=== PATIENT | female | born 1975 | race Caucasian/White ===

== ENCOUNTER → 2019-08-22 08:04 | Outpatient (BNVA) | payer OTHER, SELFPAY | PROVIDERS: PCP Nurse Practitioner Family; Visit Provider Anesthesiology | DX: M54.41 Lumbago with sciatica, right side (principal); M54.42 Lumbago with sciatica, left side; M47.817 Spondylosis without myelopathy or radiculopathy, lumbosacral region; M51.9 Unspecified thoracic, thoracolumbar and lumbosacral intervertebral disc disorder; Z79.891 Long term (current) use of opiate analgesic | CPT/HCPCS: 99214 ==

== ENCOUNTER 2019-10-05 11:25 | Outpatient (CLI) | payer OTHER, SELFPAY ==
[2019-10-05 12:54] LABS: Alanine Aminotransferase 62 U/L (0-33); Albumin Level 4.5 g/dL (3.5-5.2); Alkaline Phosphatase 83 IU/L (35-105); Aspartate Amino Transferase 56 U/L (0-32); C Reactive Protein 3.3 mg/L (0.0-4.9); Globulin 3.1 g/dL (1.3-4.6); Glomerular Filtration Rate 78.7 mL/min (90-130); Total Bilirubin 0.2 mg/dL (0.15-1.2); Total Protein 7.6 g/dL (6.6-8.7)
[2019-10-05 13:07] LABS: Basophils % 0.5 %; Eosinophils # 0.1 10^3/uL (0.0-0.8); Eosinophils % 1.4 %; Hematocrit 36.6 % (37.0-47.0); Lymphocytes # 1.4 10^3/uL (0.8-4.8); Lymphocytes % 33.4 %; Mean Corpuscular HGB Conc 32.8 g/dL (30.0-36.0); Mean Corpuscular Hemoglobin 29.6 pg (28.0-34.0); Mean Corpuscular Volume 90.4 fL (81-99); Mean Platelet Volume 11.2 fL (7.4-10.4); Monocytes # 0.4 10^3/uL (0.2-0.9); Monocytes % 8.4 %; Neutrophils # 2.4 10^3/uL (1.8-7.7); Neutrophils % 56.1 %; Nucleated Red Blood Cells % 0 %; Platelet Count 233 10^3/cmm (130-400); Red Blood Count 4.05 10^6/uL (4.1-5.3); White Blood Count 4.3 10^3/uL (4.0-10.0)
[2019-10-05 13:39] LABS: Hepatitis C Virus Antibody Non-Reactive (Nonreactive)
[2019-10-05 13:46] LABS: Hepatitis B Core AB, Total Non-Reactive (Nonreactive); Hepatitis B Surface Antigen Non-Reactive (Nonreactive)
[2019-10-05 14:03] LABS: Erythrocyte Sedimentation Rate 24 mm/hr (0-15)
[2019-10-07 12:16] LABS: Quantiferon Mitogen 7.18 IU/mL; Quantiferon Nil 0.03 IU/mL; Quantiferon TB Gold NEGATIVE (NEGATIVE)
== END 2019-10-05 11:26 | disposition home or self-care (01) ==
LOC: LAB 11:31
PROVIDERS: PCP Nurse Practitioner Family; Visit Provider Internal Medicine Rheumatology
DX: L40.50 Arthropathic psoriasis, unspecified (principal); Z79.891 Long term (current) use of opiate analgesic
CPT/HCPCS: 80076; 82565; 85025; 85651; 86140; 86480; 86704; 86803; 87340; 99213

== ENCOUNTER → 2019-10-18 13:17 | Outpatient (BNVA) | payer OTHER, SELFPAY | PROVIDERS: PCP Nurse Practitioner Family; Visit Provider Internal Medicine Rheumatology | DX: L40.0 Psoriasis vulgaris (principal); L40.50 Arthropathic psoriasis, unspecified; G89.29 Other chronic pain; M54.41 Lumbago with sciatica, right side; M54.42 Lumbago with sciatica, left side; Z79.891 Long term (current) use of opiate analgesic; Z85.71 Personal history of Hodgkin lymphoma | CPT/HCPCS: 99214 ==

== ENCOUNTER → 2019-12-14 15:25 | Outpatient (BNVA) | payer OTHER, SELFPAY | PROVIDERS: PCP Nurse Practitioner Family; Visit Provider Anesthesiology | DX: M54.41 Lumbago with sciatica, right side (principal); M54.42 Lumbago with sciatica, left side; M51.9 Unspecified thoracic, thoracolumbar and lumbosacral intervertebral disc disorder; M47.817 Spondylosis without myelopathy or radiculopathy, lumbosacral region; Z79.891 Long term (current) use of opiate analgesic | CPT/HCPCS: 99214 ==

== ENCOUNTER 2020-01-30 14:11 | Outpatient (CLI) | payer OTHER, SELFPAY ==
[2020-01-30 15:21] LABS: Urine Appearance Hazy (CLEAR); Urine Color Yellow (Yellow); pH Urine 5 (5-7)
[2020-01-30 15:22] LABS: Add Urine Culture? No; Add Urine Microscopic? YES; Bacteria Urine 1+; Bilirubin Urine Neg (NEGATIVE); Blood Urine Neg (Negative); Glucose Urine UA Norm (Normal); Ketones Urine Negative (Negative); Leukocyte Esterase Urine Negative (Negative); Nitrate Urine Negative (Negative); Protein Urine Neg (Negative); Specific Gravity, Urine 1.015 (1.005-1.030); Squamous Epithelial Cell Urine 15-25 (0-5); Urobilinogen Urine Norm (Negative); WBC Urine 0-4 /hpf (0-5)
== END 2020-01-30 14:12 | disposition home or self-care (01) ==
LOC: ONCMED 14:13
PROVIDERS: Internal Medicine Hematology & Oncology; PCP Nurse Practitioner Family; Visit Provider Internal Medicine Medical Oncology
DX: C85.90 Non-Hodgkin lymphoma, unspecified, unspecified site (principal); Z79.891 Long term (current) use of opiate analgesic
CPT/HCPCS: 81001

== ENCOUNTER → 2020-02-22 13:30 | Outpatient (BNVA) | payer OTHER, SELFPAY | PROVIDERS: PCP Nurse Practitioner Family; Visit Provider Anesthesiology | DX: M54.42 Lumbago with sciatica, left side (principal); M54.41 Lumbago with sciatica, right side; M51.9 Unspecified thoracic, thoracolumbar and lumbosacral intervertebral disc disorder; M47.817 Spondylosis without myelopathy or radiculopathy, lumbosacral region; Z79.891 Long term (current) use of opiate analgesic | CPT/HCPCS: 99214 ==

== ENCOUNTER 2020-03-25 08:33 | Outpatient (CLI) | payer OTHER, SELFPAY ==
--- NOTE | 2020-03-25 08:37 | MM_ITS ---
WS: [id number] BILATERAL DIGITAL SCREENING MAMMOGRAM WITH CAD CLINICAL INFORMATION: SCREENING HISTORY: Screening mammogram. Bilateral breast implants. History of lymphoma. COMPARISON: TECHNIQUE: Bilateral CC and MLO. FINDINGS: Bilateral breast implants. The breast are composed of extremely dense tissue, which can limit the detection of small underlying mass lesions. No suspicious focal mass, asymmetry, calcifications, or architectural distortion. No ev idence of malignancy. MM/[place] [id number] IMPRESSION: BI-RADS: 2-Benign FOLLOW UP: 1 Year Follow-up Recommend return to annual screening mammography.
== END 2020-03-25 08:34 | disposition home or self-care (01) ==
LOC: RADSHAW 08:34
PROVIDERS: PCP Nurse Practitioner Family; Visit Provider Nurse Practitioner Family
DX: Z12.31 Encounter for screening mammogram for malignant neoplasm of breast (principal)
CPT/HCPCS: 77067

== ENCOUNTER → 2020-04-18 07:55 | Outpatient (BNVA) | payer OTHER, SELFPAY | PROVIDERS: PCP Nurse Practitioner Family; Visit Provider Anesthesiology | DX: M54.41 Lumbago with sciatica, right side (principal); M54.42 Lumbago with sciatica, left side; M51.9 Unspecified thoracic, thoracolumbar and lumbosacral intervertebral disc disorder; M47.817 Spondylosis without myelopathy or radiculopathy, lumbosacral region; Z79.891 Long term (current) use of opiate analgesic | CPT/HCPCS: 99213; 99214 ==

== ENCOUNTER 2020-05-14 13:31 | Outpatient (CLI) | payer OTHER, SELFPAY ==
--- NOTE | 2020-05-14 13:38 | XRR_ITS ---
PROCEDURE INFORMATION: Exam: XR Right Ankle Exam date and time: 05/14/2020 1:40 PM Age: 45 years old Clinical indication: Swelling, leg or foot; Ankle and foot; Right; Patient HX: Lateral foot and ankle pain swelling; Additional info: Right ankle pain TECHNIQUE: Imaging protocol: XR Right ankle. Views: 3 or more views. COMPARISON: CR Foot 3 views, RIGHT* [id number] 08/14/2014 3:54 PM FINDINGS: Bones/joints: Mild degenerative changes present in the ankle joint with tiny osteophyte formation on the distal tibia. The joint spaces are not narrowed. No fracture or other acute abnormalities are seen. Soft tissues: Normal. XR/XR ankle RT min 3V* [id number] IMPRESSION: Mild degenerative disease. No acute abnormality.
--- NOTE | 2020-05-14 13:38 | XRR_ITS ---
PROCEDURE INFORMATION: Exam: XR Right Foot Complete Exam date and time: 05/14/2020 1:40 PM Age: 45 years old Clinical indication: Swelling, leg or foot; Ankle and foot; Right; Patient HX: Lateral foot and ankle pain; Additional info: Right foot pain TECHNIQUE: Imaging protocol: XR Right foot. Views: 3 or more views. COMPARISON: CR Foot 3 views, RIGHT* [id number] 08/14/2014 3:54 PM FINDINGS: Bones/joints: There is mild hallux valgus and bunion formation of the 1st metatarsal bone. No fracture or other acute abnormalities are seen. There are no other significant degenerative changes. Soft tissues: Normal. XR/XR foot RT min 3V* [id number] IMPRESSION: Mild hallux valgus and bunion. No acute abnormality.
== END 2020-05-14 13:32 | disposition home or self-care (01) ==
LOC: RAD 13:34
PROVIDERS: PCP Nurse Practitioner Family; Visit Provider Nurse Practitioner
DX: M79.671 Pain in right foot (principal); M25.571 Pain in right ankle and joints of right foot; M20.11 Hallux valgus (acquired), right foot; M21.611 Bunion of right foot
CPT/HCPCS: 73610; 73630

== ENCOUNTER → 2020-06-20 08:06 | Outpatient (BNVA) | payer OTHER, SELFPAY | PROVIDERS: PCP Nurse Practitioner Family; Visit Provider Anesthesiology | DX: G89.29 Other chronic pain (principal); M51.9 Unspecified thoracic, thoracolumbar and lumbosacral intervertebral disc disorder; M54.42 Lumbago with sciatica, left side; M47.817 Spondylosis without myelopathy or radiculopathy, lumbosacral region; Z79.891 Long term (current) use of opiate analgesic | CPT/HCPCS: 99213 ==

== ENCOUNTER 2020-06-25 16:04 | Outpatient (CLI) | payer OTHER, SELFPAY ==
--- NOTE | 2020-06-25 16:35 | MR_ITS ---
WS: [id number] MRI RIGHT ANKLE NONCONTRAST TECHNIQUE: Sagittal proton density, sagittal STIR, axial proton density, axial T1, axial T2 fat sat, coronal proton density, coronal proton density fat sat, coronal T2 fat sat. CLINICAL INFORMATION: PERSISTENT PAIN COMPARISON: None. FINDINGS: Normal ankle mortise. Talus is normal in appearance. Normal medial and lateral malleolus. No acute av ulsion fractures. Normal talar dome. No evidence of avascular necrosis. Retrotalus ganglion cyst derick uring 8 mm. Normal bone marrow signal in the talus and calcaneus. Normal bone marrow signal in the na vicular and proximal tarsal bones. Distal Achilles is normal in appearance. Mild edema involving the lateral ankle soft tissues. Tiny split tear involving the peroneal brevis wi th tendinopathy. Edema along the peroneal tendon sheaths. Peroneus longus appears normal. Extensor an d flexor compartment tendons are normal. MR/MR ankle RT wo con* [id number] IMPRESSION: 1. Normal ankle mortise. Normal medial and lateral malleolus. No acute avulsio n fractures. 2. Peroneal brevis split tear with tendinopathy. Edema along the peroneal tend on sheath. 3. Normal bone marrow signal in the talus and calcaneus. No avascular necrosis . 4. 8mm retrotalar ganglion cyst
== END 2020-06-25 16:05 | disposition home or self-care (01) ==
PROVIDERS: PCP Nurse Practitioner Family; Visit Provider Nurse Practitioner
DX: M25.571 Pain in right ankle and joints of right foot (principal); M67.471 Ganglion, right ankle and foot
CPT/HCPCS: 73721

== ENCOUNTER 2020-07-08 15:11 | Outpatient (CLI) | payer OTHER, SELFPAY | END 2020-07-08 15:12 | disposition home or self-care (01) | LOC: SPT 15:12 | PROVIDERS: PCP Nurse Practitioner Family; Visit Provider Podiatrist Foot & Ankle Surgery | DX: Z46.89 Encounter for fitting and adjustment of other specified devices (principal); M76.71 Peroneal tendinitis, right leg; S86.311D Strain of muscle(s) and tendon(s) of peroneal muscle group at lower leg level, right leg, subsequent encounter; X58.XXXD Exposure to other specified factors, subsequent encounter | CPT/HCPCS: 97760; L4361 ==

== ENCOUNTER 2020-07-16 12:30 | Outpatient (CLI) | payer OTHER, SELFPAY | END 2020-07-16 12:31 | disposition home or self-care (01) | LOC: SLEEP 07-17 16:07 | PROVIDERS: PCP Nurse Practitioner Family; Visit Provider Nurse Practitioner Family | DX: G47.10 Hypersomnia, unspecified (principal) | CPT/HCPCS: G0399 ==

== ENCOUNTER → 2020-08-15 08:34 | Outpatient (BNVA) | payer OTHER, SELFPAY | PROVIDERS: PCP Nurse Practitioner Family; Visit Provider Anesthesiology | DX: G89.29 Other chronic pain (principal); M54.41 Lumbago with sciatica, right side; M54.42 Lumbago with sciatica, left side; M47.817 Spondylosis without myelopathy or radiculopathy, lumbosacral region; M51.9 Unspecified thoracic, thoracolumbar and lumbosacral intervertebral disc disorder; Z79.891 Long term (current) use of opiate analgesic | CPT/HCPCS: 99213 ==

== ENCOUNTER → 2020-10-22 14:06 | Outpatient (BNVA) | payer OTHER, SELFPAY | PROVIDERS: PCP Nurse Practitioner Family; Visit Provider Anesthesiology | DX: G89.29 Other chronic pain (principal); M54.42 Lumbago with sciatica, left side; M54.41 Lumbago with sciatica, right side; M47.817 Spondylosis without myelopathy or radiculopathy, lumbosacral region; M51.9 Unspecified thoracic, thoracolumbar and lumbosacral intervertebral disc disorder; Z79.891 Long term (current) use of opiate analgesic | CPT/HCPCS: 99213 ==

== ENCOUNTER 2020-10-23 14:19 | Outpatient (CLI) | payer OTHER, SELFPAY ==
[2020-10-23 18:16] LABS: Basophils % 0.3 %; Eosinophils # 0.1 10^3/uL (0.0-0.8); Eosinophils % 1.9 %; Hematocrit 34.5 % (37.0-47.0); Hemoglobin 11.2 g/dL (11.5-15.3); Lymphocytes # 1.7 10^3/uL (0.8-4.8); Lymphocytes % 29.3 %; Mean Corpuscular HGB Conc 32.5 g/dL (30.0-36.0); Mean Corpuscular Hemoglobin 30.1 pg (28.0-34.0); Mean Corpuscular Volume 92.7 fL (81-99); Mean Platelet Volume 11.2 fL (7.4-10.4); Monocytes # 0.4 10^3/uL (0.2-0.9); Monocytes % 6.3 %; Neutrophils # 3.64 10^3/uL (1.8-7.7); Nucleated Red Blood Cells % 0 %; Platelet Count 179 10^3/cmm (130-400); Red Blood Count 3.72 10^6/uL (4.1-5.3); Red Cell Distribution Width 12.1 % (12.1-15.1); White Blood Count 5.9 10^3/uL (4.0-10.0)
[2020-10-23 18:48] LABS: Alanine Aminotransferase 20 U/L (0-33); Albumin Level 4.2 g/dL (3.5-5.2); Alkaline Phosphatase 72 IU/L (35-105); Aspartate Amino Transferase 20 U/L (0-32); C Reactive Protein 3.8 mg/L (0.0-4.9); Glomerular Filtration Rate 68.3 mL/min (90-130); Total Bilirubin 0.2 mg/dL (0.15-1.2); Total Protein 7.2 g/dL (6.6-8.7)
== END 2020-10-23 14:20 | disposition home or self-care (01) ==
LOC: LAB 14:23
PROVIDERS: PCP Nurse Practitioner Family; Visit Provider Internal Medicine Rheumatology
DX: M19.90 Unspecified osteoarthritis, unspecified site (principal); L40.9 Psoriasis, unspecified; Z79.899 Other long term (current) drug therapy
CPT/HCPCS: 36415; 80076; 82565; 85025; 86140

== ENCOUNTER → 2020-12-25 14:33 | Outpatient (BNVA) | payer OTHER, SELFPAY | PROVIDERS: PCP Nurse Practitioner Family; Visit Provider Anesthesiology | DX: G89.29 Other chronic pain (principal); M54.41 Lumbago with sciatica, right side; M54.42 Lumbago with sciatica, left side; M51.9 Unspecified thoracic, thoracolumbar and lumbosacral intervertebral disc disorder; M47.817 Spondylosis without myelopathy or radiculopathy, lumbosacral region; Z79.891 Long term (current) use of opiate analgesic | CPT/HCPCS: 99213 ==

== ENCOUNTER → 2021-02-20 13:46 | Outpatient (BNVA) | payer OTHER, SELFPAY | PROVIDERS: PCP Nurse Practitioner Family; Visit Provider Anesthesiology | DX: G89.29 Other chronic pain (principal); M54.41 Lumbago with sciatica, right side; M47.817 Spondylosis without myelopathy or radiculopathy, lumbosacral region; M51.9 Unspecified thoracic, thoracolumbar and lumbosacral intervertebral disc disorder; Z79.891 Long term (current) use of opiate analgesic | CPT/HCPCS: 99213 ==

== ENCOUNTER → 2021-03-13 13:45 | Outpatient (BNVA) | payer OTHER, SELFPAY | PROVIDERS: PCP Nurse Practitioner Family; Visit Provider Internal Medicine Rheumatology | DX: L40.0 Psoriasis vulgaris (principal); L40.50 Arthropathic psoriasis, unspecified; M51.17 Intervertebral disc disorders with radiculopathy, lumbosacral region; Z79.899 Other long term (current) drug therapy; K58.9 Irritable bowel syndrome, unspecified; R74.01 Elevation of levels of liver transaminase levels; Z92.3 Personal history of irradiation; Z92.21 Personal history of antineoplastic chemotherapy; Z85.71 Personal history of Hodgkin lymphoma; Z71.89 Other specified counseling | CPT/HCPCS: 99214 ==

== ENCOUNTER 2021-03-18 08:22 | Outpatient (CLI) | payer OTHER, SELFPAY ==
[2021-03-18 16:55] LABS: Basophils % 0.4 %; Eosinophils # 0.1 10^3/uL (0.0-0.8); Eosinophils % 1.5 %; Hematocrit 35.6 % (37.0-47.0); Hemoglobin 11.8 g/dL (11.5-15.3); Lymphocytes # 1.8 10^3/uL (0.8-4.8); Lymphocytes % 36.5 %; Mean Corpuscular HGB Conc 33.1 g/dL (30.0-36.0); Mean Corpuscular Hemoglobin 30.4 pg (28.0-34.0); Mean Corpuscular Volume 91.8 fl (81-99); Mean Platelet Volume 10.8 fL (7.4-10.4); Monocytes # 0.4 10^3/uL (0.2-0.9); Monocytes % 7.9 %; Neutrophils # 2.57 10^3/uL (1.8-7.7); Neutrophils % 53.5 %; Nucleated Red Blood Cells % 0 %; Platelet Count 201 10^3/cmm (130-400); Red Blood Count 3.88 10^6/uL (4.1-5.3); Red Cell Distribution Width 12.2 % (12.1-15.1); White Blood Count 4.8 10^3/uL (4.0-10.0)
[2021-03-18 18:02] LABS: Alanine Aminotransferase 19 U/L (0-33); Albumin Level 4.4 g/dL (3.5-5.2); Alkaline Phosphatase 79 IU/L (35-105); Aspartate Amino Transferase 22 U/L (0-32); C Reactive Protein 5.6 mg/L (0.0-4.9); Globulin 2.8 g/dL (1.3-4.6); Glomerular Filtration Rate 91.3 mL/min (90-130); Total Bilirubin 0.2 mg/dL (0.15-1.2); Total Protein 7.2 g/dL (6.6-8.7)
== END 2021-03-18 08:23 | disposition home or self-care (01) ==
PROVIDERS: PCP Nurse Practitioner Family; Visit Provider Internal Medicine Rheumatology
DX: Z79.899 Other long term (current) drug therapy (principal)
CPT/HCPCS: 80076; 82565; 85025; 86140

== ENCOUNTER → 2021-04-25 12:59 | Outpatient (BNVA) | payer OTHER, SELFPAY | PROVIDERS: PCP Nurse Practitioner Family; Visit Provider Anesthesiology | DX: G89.29 Other chronic pain (principal); M51.9 Unspecified thoracic, thoracolumbar and lumbosacral intervertebral disc disorder; M47.817 Spondylosis without myelopathy or radiculopathy, lumbosacral region; Z79.899 Other long term (current) drug therapy; Z79.891 Long term (current) use of opiate analgesic | CPT/HCPCS: 99213 ==

== ENCOUNTER 2022-05-18 09:11 | Emergency (ER) | payer SELFPAY ==
--- NOTE | 2022-05-18 09:17 | ECG_ITS ---
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 Measurements Intervals [place] Rate: 77 P: 39 [place]: 180 QRS: 18 QRSD: 79 T: 62 QT: 375 QTc: 427 Interpretive Statements SINUS RHYTHM POSSIBLE RIGHT VENTRICULAR CONDUCTION DELAY [RSR (QR) IN V1/V2] No previous ECG available for comparison Electronically Signed On 05-18-2022 19:04:17 [employer]ACLE WEBCENTER CONSULTANT by Elbert Alcaraz M.D. [id number]
--- NOTE | 2022-05-18 09:17 | XR_ITS ---
WS: [id number] EXAMINATION: XR chest 1V portable [id number] DATE: 05/18/2022 9:39 AM CLINICAL HISTORY: Chest pain history of lymphoma TECHNIQUE: A single, portable frontal chest x-ray was obtained. COMPARISON: 01/27/2012 X-RAY FINDINGS: The lungs are clear of acute infiltrate with right perihilar stranding consistent with chronic fibrot ic change.. Pleural spaces are clear. No pleural effusions or pneumothorax. Cardiomediastinal silhouette is normal with postsurgical mediastinal changes. No evidence for pulmona ry edema. Soft tissue and osseous structures are unremarkable. No tubes or lines are present. XR/XR chest 1V portable [id number] IMPRESSION: Chronic fibrotic changes in the right perihilum with postsurgical mediastinal changes stable compared with prior study.
[2022-05-18 09:20] VITALS: BP 162/93; PULSE 87; RESP 18; TEMP 36.5; O2SAT 97
--- NOTE | 2022-05-18 10:09 | W.ED.CHESTPA ---
Documented by User: JAKY Caraballo 05/19/22 12:23 HPI - Chest Pain General: Chief Complaint: Chest Pain Stated Complaint: Chest Pain Time Seen by Provider: 05/18/22 09:18 History of Present Illness: Patient is a 47-year-old female comes to the ED with chest pain. Symptoms started this morning approximately an hour ago. Patient was sitting in a car driving here to [place] when she started feeling midsternal chest pain that radiates into the left side of her chest. She also describes feeling a tightness in her neck. Pain waxes and wanes. She rates the chest pain currently a 4 out of 10. Denies any history of chest pain. Denies any improving or worsening factors Associated symptoms: Deny abdominal pain, dyspnea, fever(s), nausea, palpitations or vomiting Review of Systems Const: Denies: fever(s), chills or fatigue Eyes: Denies: change in vision or eye discomfort ENMT: Denies: throat pain, odynophagia, nasal discharge or nasal congestion Card: Reports: chest pain; Denies: palpitations, edema, swelling of feet/ankles, dyspnea on exertion or orthopnea Resp: Denies: dyspnea, productive cough or non-productive cough GI: Denies: abdominal pain, nausea, vomiting, diarrhea, constipation or hematochezia : Denies: flank pain, dysuria or hematuria Musc: Denies: neck pain, back pain or extremity swelling Skin/Breast: Denies: rash or new lesions Neuro: Denies: headache(s), numbness in extremities or weakness in extremities PFS ED PFSH: Medical History Abnormal heart rhythm Acute bilateral low back pain with bilateral sciatica Acute mitral regurgitation Chronic low back pain with sciatica Disc disorder of lumbar region Encounter for long-term opiate analgesic use High risk medication use High risk medication use Immunization counseling Opioid contract exists Other dystonia PA (psoriatic arthritis) Piriformis syndrome of right side Plaque psoriasis Psoriasis 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, lumbosacral region Tachycardia, unspecified Surgical History Hx laparoscopic cholecystectomy Hx of breast augmentation Hx of hysterectomy, total Family History Father Colon cancer age of -44 Mother Thyroid disease Family/Other Breast cancer paternal aunt Uterine cancer paternal aunt Other CAD (coronary artery disease) Cancer Denies family history of Ovarian cancer Social History Smoking and tobacco status: never smoked Alcohol intake: current Alcohol intake frequency: 0-2 Drinks per Day History of recent travel: No Physical Exam Const: COMMON NORMALS: no acute distress, patient oriented x3, healthy appearing and alert GENERAL APPEARANCE: cooperative and comfortable HENMT: COMMON NORMALS: normocephalic HEAD & SCALP: normocephalic MOUTH: Normal oral and palatal mucosa present THROAT: posterior oropharynx normal and uvula midline Neck/C-Spine: COMMON NORMALS: supple GENERAL: Yes normal visual inspection Resp: COMMON NORMALS: normal respiratory effort, No retractions, No use of accessory muscles and clear to auscultation bilaterally AUSCULTATION: clear to auscultation bilaterally Cardio: COMMON NORMALS: regular rate, regular rhythm, S1 normal heart sound present, S2 normal heart sound present, No gallops present (Cardio), No clicks present (Cardio), No murmurs present (Cardio) and Peripheral pulses 2+ throughout RATE: regular rate RHYTHM: regular rhythm HEART SOUNDS: S1 normal heart sound present and S2 normal heart sound present PERIPHERAL PULSES: Peripheral pulses 2+ throughout GI: COMMON NORMALS: Normal to inspection, nondistended, normoactive bowel sounds present, Soft to palpation, non-tender and no masses PALPATION: Yes Soft to palpation : COMMON NORMALS: Yes no CVA tenderness BLADDER/KIDNEY EXAM: Yes no CVA tenderness Back/Pelvis: COMMON NORMALS: no CVA tenderness Extremity: COMMON NORMALS: normal to inspection Neuro: COMMON NORMALS: patient oriented x3 SENSORIUM/ORIENTATION: Yes alert GAIT: Yes Normal gait present Skin: GENERAL SKIN EXAM: dry skin Course Vital Signs: Vital signs: Vital Signs Temperature 97.7 F 05/18/22 09:20 Pulse Rate 85 05/18/22 13:01 Respiratory Rate 14 05/18/22 13:01 Blood Pressure 129/76 05/18/22 13:01 Pulse Oximetry 96 05/18/22 13:01 MDM - Chest Pain Medical Decision Making Patient is a 47-year-old female who comes in the ED with chest pain at rest. Denies any cardiac history. Vitals are stable. Exam is benign. Labs unremarkable. EKG showed no acute findings. Troponins were negative. Chest x-ray showed no acute findings. Patient was given morphine and aspirin as initial treatment here in the ED. She was then given a dose of Ativan and her symptoms improved. She was stable for discharge home and diagnosed with atypical chest pain. Told to follow-up with PCP within the next week for reevaluation. Return to ED precautions given. Patient understood and agreed with plan. Lab Data I reviewed the patient's lab results. 05/18/22 10:15 05/18/22 10:15 Radiology Impressions Chest X-Ray 05/18/22 09:17 IMPRESSION: Chronic fibrotic changes in the right perihilum with postsurgical mediastinal changes stable compared with prior study. Laboratory Results WBC 6.3 10^3/uL (4.0-10.0) 05/18/22 10:15 RBC 4.26 10^6/uL (4.1-5.3) 05/18/22 10:15 Hgb 12.5 g/dL (11.5-15.3) 05/18/22 10:15 Hct 38.0 % (37.0-47.0) 05/18/22 10:15 MCV 89.2 fl (81-99) 05/18/22 10:15 MCH 29.3 pg (28.0-34.0) 05/18/22 10:15 MCHC 32.9 g/dL (30.0-36.0) 05/18/22 10:15 RDW 12.4 % (12.1-15.1) 05/18/22 10:15 Plt Count 231 10^3/cmm (130-400) 05/18/22 10:15 MPV 10.5 fL (7.4-10.4) H 05/18/22 10:15 Neut % (Auto) 68.5 % 05/18/22 10:15 Lymph % (Auto) 22.1 % 05/18/22 10:15 [place] % (Auto) 6.8 % 05/18/22 10:15 Eos % (Auto) 1.6 % 05/18/22 10:15 Baso % (Auto) 0.5 % 05/18/22 10:15 Neut # (Auto) 4.35 10^3/uL (1.8-7.7) 05/18/22 10:15 Lymph # (Auto) 1.4 10^3/uL (0.8-4.8) 05/18/22 10:15 [place] # (Auto) 0.4 10^3/uL (0.2-0.9) 05/18/22 10:15 Eos # (Auto) 0.1 10^3/uL (0.0-0.8) 05/18/22 10:15 Baso # (Auto) 0.0 10^3/uL (0.0-0.1) 05/18/22 10:15 Nucleated RBC % (auto) 0 % 05/18/22 10:15 Nucleated RBCs # 0.0 /100WBC 05/18/22 10:15 Sodium 133 mmol/L (136-145) L 05/18/22 10:15 Potassium 3.9 mmol/L (3.5-5.1) 05/18/22 10:15 Chloride 99 mmol/L (98-107) 05/18/22 10:15 Carbon Dioxide 25 mmol/L (22-29) 05/18/22 10:15 Anion Gap 12.9 (5-19) 05/18/22 10:15 BUN 11 mg/dL (6-20) 05/18/22 10:15 Creatinine 0.7 mg/dL (0.5-0.9) 05/18/22 10:15 GFR Calculation 90.5 mL/min (90-130) 05/18/22 10:15 Glucose 115 mg/dL (65-115) 05/18/22 10:15 Calculated Osmolality 276 mOsm/kg (285-295) L 05/18/22 10:15 Calcium 10.0 mg/dL (8.5-10.5) 05/18/22 10:15 Total Bilirubin 0.2 mg/dL (0.15-1.2) 05/18/22 10:15 AST 29 U/L (0-32) 05/18/22 10:15 ALT 24 U/L (0-33) 05/18/22 10:15 Alkaline Phosphatase 91 U/L (35-105) 05/18/22 10:15 Troponin T Baseline 6 ng/L (0-10) 05/18/22 10:15 Troponin T 120 Minute 6.00 ng/L (0-10) 05/18/22 11:59 Delta Troponin T 0 ABS# (0-10) 05/18/22 11:59 NT-Pro-B Natriuret Pep 78 pg/mL (0-125) 05/18/22 10:15 Total Protein 7.7 g/dL (6.6-8.7) 05/18/22 10:15 Albumin 4.2 g/dL (3.5-5.2) 05/18/22 10:15 Globulin 3.5 g/dL (1.3-4.6) 05/18/22 10:15 EKG Data EKG 1: EKG interpretation date: 05/18/22 Computer generated interpretation: [address] [id number] Electrocardiograph Report Signed Patient: Ave Escobar Unit #: [id number] : 1975 Age/Sex: 47 / F ADM Date: 05/18/22 Loc: ER Room/Bed: Attending Dr: Ordering Provider/Ordering MD: Mart Espinosa Date of Service: 05/18/22 Procedure(s): ECG 12 lead EKG Accession Number(s): [id number] Report Number: [id number] ? [facility] ? Test Date:? ? 2022-05-18 Pat Name: ? ? Ave Escobar ? Department: ? Patient ID: ? [id number] ? Room: ? Gender: ? ? ? Female ? Roller Stitcher: ? :? 1975 ? Requested By: Mart Espinosa Order Number: [id number]? Reading : ? Elbert Alcaraz M.D. ? Measurements Intervals? [place]? Rate: ? 77 ? P:? 39 WI: ? 180? QRS:? 18 QRSD: ? 79 ? T:? 62 QT: ? 375? QTc:? 427? Interpretive Statements SINUS RHYTHM POSSIBLE RIGHT VENTRICULAR CONDUCTION DELAY? [RSR (QR) IN V1/V2] No previous ECG available for comparison Electronically Signed On 05-18-2022 19:04:17 FROTHING MACHINE OPERATOR by Elbert Alcaraz M.D. [id number] Dictated By: Elbert Alcaraz MD Signed By: Elbert Alcaraz MD Signed Date/Time: 05/18/221903 DD/ 5 Discharge Plan Discharge Patient Disposition: Home Clinical Impression: Atypical chest pain Condition: Stable Prescriptions: New hydroxyzine pamoate 50 mg capsule 50 mg PO BID PRN (Reason: acute anxiety) Qty: 20 0RF No Action bupropion HCl [Wellbutrin SR] 200 mg tablet sustained-release 12 hr 200 mg PO BID zolpidem [Ambien] 10 mg tablet 10 mg PO BEDTIME citalopram 10 mg tablet 10 mg PO DAILY hydrocodone-acetaminophen 10-325 mg tablet 1 tab PO QID 30 Days Qty: 120 0RF Rx Instructions: fill on or after 08/11/21 pregabalin [Lyrica] 100 mg capsule 100 mg PO BID 30 Days Qty: 60 1RF prednisone 10 mg tablet See Rx Instructions PO .COMPLEX PRN (Reason: joint pain flare) Qty: 30 1RF Rx Instructions: take 1 or 2 tab daily for 3-7 days prn joint pain flare PO PRN; Taltz Syringe 80 mg/mL syringe 80 mg SUBCUT .[id number] Qty: 1 3RF metoprolol tartrate 75 mg tablet 75 mg PO DAILY Discharge Orders: Discharge ED (Routine); Ordered 05/18/22 Ordered By: Mart Espinosa Referrals: Katerina Burnett FNP [Primary Care Provider] - Discharge Diet: Regular Discharge Activity: Increase activity as tolerated Patient Instructions: Chest Pain (ED), Noncardiac Chest Pain (ED) Activity Restrictions/Additional Instructions: Follow-up with medical provider as directed in the next 5 to 7 days for reevaluation. Take medications as prescribed. Return to the ER or your medical provider if condition worsens. Please read and understand discharge instructions. Thank you for choosing [facility] for your healthcare needs today. Please realize this is an emergency room and that we are providing you with a medical screening exam and this may not be complete and all inclusive of all the testing and or work up that you may need to determine your ailment or severity of your illness. It is very important that you follow up as instructed or that you return to the Emergency Department should you have concerns or if your condition changes or worsens in any way. Coding Level of Care Code ED Product Design Specialist for Chg Fwd Exam Comprehensive Documented by User: Brenton Rhodes DO 05/19/22 12:57 HPI - Chest Pain General: Chief Complaint: Chest Pain Stated Complaint: Chest Pain Time Seen by Provider: 05/18/22 09:18 [facility] ED PFSH: Medical History Abnormal heart rhythm Acute bilateral low back pain with bilateral sciatica Acute mitral regurgitation Chronic low back pain with sciatica Disc disorder of lumbar region Encounter for long-term opiate analgesic use High risk medication use High risk medication use Immunization counseling Opioid contract exists Other dystonia PA (psoriatic arthritis) Piriformis syndrome of right side Plaque psoriasis Psoriasis 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, lumbosacral region Tachycardia, unspecified Surgical History Hx laparoscopic cholecystectomy Hx of breast augmentation Hx of hysterectomy, total Family History Father Colon cancer age of -44 Mother Thyroid disease Family/Other Breast cancer paternal aunt Uterine cancer paternal aunt Other CAD (coronary artery disease) Cancer Denies family history of Ovarian cancer Social History Smoking and tobacco status: never smoked Alcohol intake: current Alcohol intake frequency: 0-2 Drinks per Day History of recent travel: No Course Vital Signs: Vital signs: Vital Signs Temperature 97.7 F 05/18/22 09:20 Pulse Rate 85 05/18/22 13:01 Respiratory Rate 14 05/18/22 13:01 Blood Pressure 129/76 05/18/22 13:01 Pulse Oximetry 96 05/18/22 13:01 MDM - Chest Pain Medical Decision Making Patient is a 47-year-old female who comes in the ED with chest pain at rest. Denies any cardiac history. Vitals are stable. Exam is benign. Labs unremarkable. EKG showed no acute findings. Troponins were negative. Chest x-ray showed no acute findings. Patient was given morphine and aspirin as initial treatment here in the ED. She was then given a dose of Ativan and her symptoms improved. She was stable for discharge home and diagnosed with atypical chest pain. Told to follow-up with PCP within the next week for reevaluation. Return to ED precautions given. Patient understood and agreed with plan. Chart reviewed and patient discussed with midlevel. Agree with assessment and plan. Lab Data 05/18/22 10:15 05/18/22 10:15 Radiology Impressions Chest X-Ray 05/18/22 09:17 IMPRESSION: Chronic fibrotic changes in the right perihilum with postsurgical mediastinal changes stable compared with prior study. Laboratory Results WBC 6.3 10^3/uL (4.0-10.0) 05/18/22 10:15 RBC 4.26 10^6/uL (4.1-5.3) 05/18/22 10:15 Hgb 12.5 g/dL (11.5-15.3) 05/18/22 10:15 Hct 38.0 % (37.0-47.0) 05/18/22 10:15 MCV 89.2 fl (81-99) 05/18/22 10:15 MCH 29.3 pg (28.0-34.0) 05/18/22 10:15 MCHC 32.9 g/dL (30.0-36.0) 05/18/22 10:15 RDW 12.4 % (12.1-15.1) 05/18/22 10:15 Plt Count 231 10^3/cmm (130-400) 05/18/22 10:15 MPV 10.5 fL (7.4-10.4) H 05/18/22 10:15 Neut % (Auto) 68.5 % 05/18/22 10:15 Lymph % (Auto) 22.1 % 05/18/22 10:15 [place] % (Auto) 6.8 % 05/18/22 10:15 Eos % (Auto) 1.6 % 05/18/22 10:15 Baso % (Auto) 0.5 % 05/18/22 10:15 Neut # (Auto) 4.35 10^3/uL (1.8-7.7) 05/18/22 10:15 Lymph # (Auto) 1.4 10^3/uL (0.8-4.8) 05/18/22 10:15 [place] # (Auto) 0.4 10^3/uL (0.2-0.9) 05/18/22 10:15 Eos # (Auto) 0.1 10^3/uL (0.0-0.8) 05/18/22 10:15 Baso # (Auto) 0.0 10^3/uL (0.0-0.1) 05/18/22 10:15 Nucleated RBC % (auto) 0 % 05/18/22 10:15 Nucleated RBCs # 0.0 /100WBC 05/18/22 10:15 Sodium 133 mmol/L (136-145) L 05/18/22 10:15 Potassium 3.9 mmol/L (3.5-5.1) 05/18/22 10:15 Chloride 99 mmol/L (98-107) 05/18/22 10:15 Carbon Dioxide 25 mmol/L (22-29) 05/18/22 10:15 Anion Gap 12.9 (5-19) 05/18/22 10:15 BUN 11 mg/dL (6-20) 05/18/22 10:15 Creatinine 0.7 mg/dL (0.5-0.9) 05/18/22 10:15 GFR Calculation 90.5 mL/min (90-130) 05/18/22 10:15 Glucose 115 mg/dL (65-115) 05/18/22 10:15 Calculated Osmolality 276 mOsm/kg (285-295) L 05/18/22 10:15 Calcium 10.0 mg/dL (8.5-10.5) 05/18/22 10:15 Total Bilirubin 0.2 mg/dL (0.15-1.2) 05/18/22 10:15 AST 29 U/L (0-32) 05/18/22 10:15 ALT 24 U/L (0-33) 05/18/22 10:15 Alkaline Phosphatase 91 U/L (35-105) 05/18/22 10:15 Troponin T Baseline 6 ng/L (0-10) 05/18/22 10:15 Troponin T 120 Minute 6.00 ng/L (0-10) 05/18/22 11:59 Delta Troponin T 0 ABS# (0-10) 05/18/22 11:59 NT-Pro-B Natriuret Pep 78 pg/mL (0-125) 05/18/22 10:15 Total Protein 7.7 g/dL (6.6-8.7) 05/18/22 10:15 Albumin 4.2 g/dL (3.5-5.2) 05/18/22 10:15 Globulin 3.5 g/dL (1.3-4.6) 05/18/22 10:15 Discharge Plan Discharge Patient Disposition: Home Clinical Impression: Atypical chest pain Condition: Stable Prescriptions: New hydroxyzine pamoate 50 mg capsule 50 mg PO BID PRN (Reason: acute anxiety) Qty: 20 0RF No Action bupropion HCl [Wellbutrin SR] 200 mg tablet sustained-release 12 hr 200 mg PO BID zolpidem [Ambien] 10 mg tablet 10 mg PO BEDTIME citalopram 10 mg tablet 10 mg PO DAILY hydrocodone-acetaminophen 10-325 mg tablet 1 tab PO QID 30 Days Qty: 120 0RF Rx Instructions: fill on or after 08/11/21 pregabalin [Lyrica] 100 mg capsule 100 mg PO BID 30 Days Qty: 60 1RF prednisone 10 mg tablet See Rx Instructions PO .COMPLEX PRN (Reason: joint pain flare) Qty: 30 1RF Rx Instructions: take 1 or 2 tab daily for 3-7 days prn joint pain flare PO PRN; Taltz Syringe 80 mg/mL syringe 80 mg SUBCUT .[id number] Qty: 1 3RF metoprolol tartrate 75 mg tablet 75 mg PO DAILY Discharge Orders: Discharge ED (Routine); Ordered 05/18/22 Ordered By: Mart Espinosa Referrals: Katerina Burnett FNP [Primary Care Provider] - Discharge Diet: Regular Discharge Activity: Increase activity as tolerated Patient Instructions: Chest Pain (ED), Noncardiac Chest Pain (ED) Activity Restrictions/Additional Instructions: Follow-up with medical provider as directed in the next 5 to 7 days for reevaluation. Take medications as prescribed. Return to the ER or your medical provider if condition worsens. Please read and understand discharge instructions. Thank you for choosing [facility] for your healthcare needs today. Please realize this is an emergency room and that we are providing you with a medical screening exam and this may not be complete and all inclusive of all the testing and or work up that you may need to determine your ailment or severity of your illness. It is very important that you follow up as instructed or that you return to the Emergency Department should you have concerns or if your condition changes or worsens in any way. Coding Level of Care Code ED Product Design Specialist for Jaylon Williamson Exam Comprehensive
[2022-05-18 10:22] LABS: Basophils % 0.5 %; Eosinophils # 0.1 10^3/uL (0.0-0.8); Eosinophils % 1.6 %; Hemoglobin 12.5 g/dL (11.5-15.3); Lymphocytes # 1.4 10^3/uL (0.8-4.8); Lymphocytes % 22.1 %; Mean Corpuscular HGB Conc 32.9 g/dL (30.0-36.0); Mean Corpuscular Hemoglobin 29.3 pg (28.0-34.0); Mean Corpuscular Volume 89.2 fl (81-99); Mean Platelet Volume 10.5 fL (7.4-10.4); Monocytes # 0.4 10^3/uL (0.2-0.9); Monocytes % 6.8 %; Neutrophils # 4.35 10^3/uL (1.8-7.7); Neutrophils % 68.5 %; Nucleated Red Blood Cells % 0 %; Platelet Count 231 10^3/cmm (130-400); Red Blood Count 4.26 10^6/uL (4.1-5.3); Red Cell Distribution Width 12.4 % (12.1-15.1); White Blood Count 6.3 10^3/uL (4.0-10.0)
[2022-05-18] MEDS: aspirin 81 mg Chew Tablet 324 MG PO (10:22)
[2022-05-18] MEDS: morphine 4 mg/mL SDV 1 mL IVP (10:23)
[2022-05-18] MEDS: ondansetron 2 mg/ML SDV 2 mL 4 MG IVP (10:23)
[2022-05-18 10:52] LABS: Alanine Aminotransferase 24 U/L (0-33); Albumin Level 4.2 g/dL (3.5-5.2); Alkaline Phosphatase 91 U/L (35-105); Anion Gap 12.9 (5-19); Aspartate Amino Transferase 29 U/L (0-32); Blood Urea Nitrogen 11 mg/dL (6-20); Carbon Dioxide 25 mmol/L (22-29); Chloride 99 mmol/L (98-107); Globulin 3.5 g/dL (1.3-4.6); Glomerular Filtration Rate 90.5 mL/min (90-130); Glucose 115 mg/dL (65-115); Osmolality Calculated 276 mOsm/kg (285-295); Potassium 3.9 mmol/L (3.5-5.1); Sodium 133 mmol/L (136-145); Total Bilirubin 0.2 mg/dL (0.15-1.2); Total Protein 7.7 g/dL (6.6-8.7)
[2022-05-18 10:56] LABS: Troponin(5th) Baseline 6 ng/L (0-10)
[2022-05-18 10:58] VITALS: BP 153/84; PULSE 79
[2022-05-18 11:23] LABS: NT Pro B Type Natriuretic Pept 78 pg/mL (0-125)
[2022-05-18] MEDS: LORazepam 2 mg/mL INJ 1 mL 1 MG IVP (11:47)
[2022-05-18 12:27] LABS: Troponin 5 2HR Delta 0 ABS# (0-10)
[2022-05-18 13:01] VITALS: BP 129/76; PULSE 85; RESP 14; O2SAT 96
== END 2022-05-18 13:00 | disposition home or self-care (01) ==
PROVIDERS: Emergency Provider Physician Assistant; PCP Nurse Practitioner Family
DX: R07.89 Other chest pain (principal)
CPT/HCPCS: 36415; 71045; 80053; 83880; 84484; 85025; 93005; 96374; 96375; 99285; J2060; J2270; J2405

== ENCOUNTER 2023-01-12 11:42 | Outpatient (CLI) | payer OTHER, SELFPAY ==
[2023-01-12 12:35] LABS: Basophils % 0.3 %; Eosinophils # 0.1 10^3/uL (0.0-0.8); Eosinophils % 1.5 %; Hematocrit 34.6 % (37.0-47.0); Hemoglobin 11.1 g/dL (11.5-15.3); Lymphocytes % 31.7 %; Mean Corpuscular HGB Conc 32.1 g/dL (30.0-36.0); Mean Corpuscular Hemoglobin 29.1 pg (28.0-34.0); Mean Corpuscular Volume 90.8 fl (81-99); Mean Platelet Volume 10.8 fL (7.4-10.4); Monocytes # 0.7 10^3/uL (0.2-0.9); Monocytes % 11.7 %; Neutrophils # 3.37 10^3/uL (1.8-7.7); Neutrophils % 54.5 %; Nucleated Red Blood Cells % 0 %; Platelet Count 204 10^3/cmm (130-400); Red Blood Count 3.81 10^6/uL (4.1-5.3); Red Cell Distribution Width 12.8 % (12.1-15.1); White Blood Count 6.2 10^3/uL (4.0-10.0)
[2023-01-12 13:04] LABS: Alanine Aminotransferase 29 U/L (0-33); Albumin Level 4.2 g/dL (3.5-5.2); Alkaline Phosphatase 101 U/L (35-105); Aspartate Amino Transferase 20 U/L (0-32); C Reactive Protein 7.7 mg/L (0.0-4.9); Globulin 2.5 g/dL (1.3-4.6); Glomerular Filtration Rate 77.6 mL/min (90-130); Total Bilirubin 0.2 mg/dL (0.15-1.2); Total Protein 6.7 g/dL (6.6-8.7)
== END 2023-01-12 11:43 | disposition home or self-care (01) ==
LOC: LAB 11:45
PROVIDERS: PCP Family Medicine; Visit Provider Internal Medicine Rheumatology
DX: L40.0 Psoriasis vulgaris (principal); M47.817 Spondylosis without myelopathy or radiculopathy, lumbosacral region; Z79.899 Other long term (current) drug therapy
CPT/HCPCS: 36415; 80076; 82565; 85025; 86140

== ENCOUNTER → 2023-08-02 11:04 | Outpatient (BNVA) | payer OTHER, SELFPAY | PROVIDERS: PCP Family Medicine; Visit Provider Internal Medicine Rheumatology | DX: Z79.899 Other long term (current) drug therapy (principal); L40.50 Arthropathic psoriasis, unspecified; L40.0 Psoriasis vulgaris; Z71.89 Other specified counseling | CPT/HCPCS: 36415; 80076; 82565; 85025; 86140 ==

== ENCOUNTER → 2024-07-06 15:17 | Outpatient (BNVA) | payer OTHER, SELFPAY | PROVIDERS: PCP Family Medicine; Visit Provider Internal Medicine Rheumatology | DX: L40.50 Arthropathic psoriasis, unspecified (principal); Z79.899 Other long term (current) drug therapy | CPT/HCPCS: 36415; 80076; 82565; 85025; 85651; 86140 ==